=== PATIENT | female | born 1975 | race African-American/Black ===

== ENCOUNTER 2016-12-22 14:16 | Outpatient (CLI) | payer BC ==
[2016-12-22 14:42] LABS: Bilirubin Negative (Negative); Blood, Urine Negative (Negative); Glucose, Urine (Dipstick) Negative (Negative); Ketone, Urine Negative (Negative); Nitrite Negative (Negative); Protein, Urine (Dipstick) Negative (Neg-Trace); Urobilinogen 0.2 mg/dL (0.2-1.0)
[2016-12-22 14:51] LABS: Bacteria/HPF Rare-Few HPF (None Seen); RBC/HPF None Seen HPF (0-3); Squamous Epithelial 0-3 HPF (0-3); WBC/HPF None Seen HPF (0-3)
== END 2016-12-22 14:17 | disposition home or self-care (01) ==
LOC: HPCALD 14:16
PROVIDERS: ATTEND Nurse Practitioner
DX: R30.0 Dysuria (principal)
CPT/HCPCS: 81001

== ENCOUNTER 2017-04-27 08:50 | Outpatient (CLI) | payer BC, OTHER ==
[2017-04-27 09:27] LABS: ALT (SGPT) 13 U/L (8-55); AST (SGOT) 17 U/L (5-34); Alkaline Phosphatase 50 U/L (40-150); Anion Gap 11 mmol/L (10-20); BUN (Urea Nitrogen) 10 mg/dL (7.0-18.7); Bilirubin, Total 0.6 mg/dL (0.2-1.2); Calc. Creatinine Clearance 0 mL/min (70-130); Calcium 9.2 mg/dL (7.8-10.44); Carbon Dioxide 28 mmol/L (22-29); Chloride 105 mmol/L (98-107); Estimated GFR-MDRD 85; Globulin 2.7 g/dL (2.4-3.5); Glucose 119 mg/dL (70-105); Potassium 3.9 mmol/L (3.5-5.1); Protein, Total 6.7 g/dL (6.0-8.3); Sodium 140 mmol/L (136-145)
[2017-04-27 09:30] LABS: #Eosinphils 0.1 thou/uL (0.0-0.7); #Lymphocytes 1.2 thou/uL (1.20-3.40); #Monocytes 0.3 thou/uL (0.11-0.59); #Neutrophils 2.2 thou/uL (1.40-6.50); %Eosinophils 2.1 % (0.0-10.0); %Lymphocytes 30.9 % (21.0-51.0); %Monocytes 8.5 % (0.0-10.0); %Neutrophils 57.4 % (42.0-75.0); Hemoglobin 13.1 g/dL (12.0-16.0); Mean Corpuscular HGB CONC 32.2 g/dL (32.0-36.0); Mean Corpuscular Hemoglobin 27.5 pg (27.0-31.0); Mean Corpuscular Volume 85.3 fl (81.0-99.0); Mean Platelet Volume 9.5 fL (7.4-10.4); Platelet Count 162 thou/uL (130-400); RBC Distribution Width 11.8 % (11.5-14.5); Red Blood Cell (RBC) Count 4.78 mill/uL (4.20-5.40); White Blood Cell (WBC) Count 3.8 thou/uL (4.8-10.8)
[2017-04-27 17:40] LABS: CRP (Inflammatory) Less than 0.50 mg/dL (= or < 0.5)
== END 2017-04-27 08:51 | disposition home or self-care (01) ==
LOC: HPCALD 08:50
PROVIDERS: ATTEND Nurse Practitioner
DX: M06.4 Inflammatory polyarthropathy (principal); Z79.899 Other long term (current) drug therapy
CPT/HCPCS: 36415; 80053; 85025; 85652; 86140

== ENCOUNTER 2017-05-02 11:14 | Outpatient (CLI) | payer OTHER | END 2017-05-02 11:15 | disposition home or self-care (01) | LOC: HPCALD 11:14 | PROVIDERS: ATTEND Nurse Practitioner | DX: M06.4 Inflammatory polyarthropathy (principal) | CPT/HCPCS: 86200 ==

== ENCOUNTER 2017-07-04 09:41 | Outpatient (CLI) | payer OTHER ==
[2017-07-04 10:24] LABS: #Eosinphils 0.1 thou/uL (0.0-0.7); #Lymphocytes 1.4 thou/uL (1.20-3.40); #Monocytes 0.3 thou/uL (0.11-0.59); #Neutrophils 2.1 thou/uL (1.40-6.50); %Basophils 0.7 % (0.0-1.0); %Lymphocytes 36.1 % (21.0-51.0); %Monocytes 7.6 % (0.0-10.0); %Neutrophils 53.6 % (42.0-75.0); Hemoglobin 12.9 g/dL (12.0-16.0); Mean Corpuscular Hemoglobin 28.4 pg (27.0-31.0); Mean Corpuscular Volume 86.1 fl (81.0-99.0); Mean Platelet Volume 9.7 fL (7.4-10.4); Platelet Count 152 thou/uL (130-400); RBC Distribution Width 12.8 % (11.5-14.5); Red Blood Cell (RBC) Count 4.55 mill/uL (4.20-5.40); White Blood Cell (WBC) Count 3.9 thou/uL (4.8-10.8)
[2017-07-04 10:28] LABS: ALT (SGPT) 13 U/L (8-55); AST (SGOT) 16 U/L (5-34); Albumin 4.2 g/dL (3.5-5.0); Alkaline Phosphatase 59 U/L (40-150); Anion Gap 12 mmol/L (10-20); BUN (Urea Nitrogen) 15 mg/dL (7.0-18.7); Bilirubin, Total 0.6 mg/dL (0.2-1.2); Calc. Creatinine Clearance 0 mL/min (70-130); Calcium 9.3 mg/dL (7.8-10.44); Carbon Dioxide 25 mmol/L (22-29); Chloride 105 mmol/L (98-107); Estimated GFR-MDRD 72; Globulin 2.8 g/dL (2.4-3.5); Glucose 81 mg/dL (70-105); Sodium 138 mmol/L (136-145)
[2017-07-04 18:17] LABS: CRP (Inflammatory) Less than 0.50 mg/dL (= or < 0.5)
== END 2017-07-04 09:42 | disposition home or self-care (01) ==
LOC: HPCALD 09:41
PROVIDERS: ATTEND Nurse Practitioner
DX: E55.9 Vitamin D deficiency, unspecified (principal); M06.4 Inflammatory polyarthropathy; Z79.899 Other long term (current) drug therapy
CPT/HCPCS: 36415; 80053; 82306; 85025; 85652; 86140

== ENCOUNTER 2021-02-01 18:28 | Outpatient (CLI) | payer BC | END 2021-02-01 18:29 | disposition home or self-care (01) | LOC: BURRAD 18:28 | PROVIDERS: ATTEND Registered Nurse Community Health | DX: R29.898 Other symptoms and signs involving the musculoskeletal system (principal) ==

== ENCOUNTER 2021-05-27 16:16 | Outpatient (CLI) | payer BC | END 2021-05-27 16:17 | disposition home or self-care (01) | LOC: BURRAD 16:16 | PROVIDERS: ATTEND Clinical Nurse Specialist Medical-Surgical | DX: U07.1 COVID-19 (principal); R91.8 Other nonspecific abnormal finding of lung field | CPT/HCPCS: 71046 ==

== ENCOUNTER 2021-07-20 09:40 | Outpatient (CLI) | payer BC | END 2021-07-20 09:41 | disposition home or self-care (01) | LOC: BURRAD 09:40 | PROVIDERS: ATTEND Clinical Nurse Specialist Medical-Surgical | DX: U07.1 COVID-19 (principal); J12.82 Pneumonia due to coronavirus disease 2019 | CPT/HCPCS: 71046 ==

== ENCOUNTER 2023-02-07 19:17 | Outpatient (CLI) | payer BC | END 2023-02-07 19:18 | disposition home or self-care (01) | LOC: BURRAD 19:17 | PROVIDERS: ATTEND Registered Nurse Hospice | DX: R07.81 Pleurodynia (principal) ==